=== PATIENT | male | born 1970 ===

== ENCOUNTER 2023-11-12 08:47 | Outpatient (CLI) | payer OTHER | END 2023-11-12 13:52 | disposition home or self-care (01) | LOC: TOM 08:47 | DX: I61.9 Nontraumatic intracerebral hemorrhage, unspecified (principal) | CPT/HCPCS: 70496 ==

== ENCOUNTER 2023-11-29 10:29 | Outpatient (CLI) | payer OTHER | END 2023-11-29 11:00 | disposition home or self-care (01) | LOC: MRI 10:29 | DX: I63.81 Other cerebral infarction due to occlusion or stenosis of small artery (principal); M99.80 Other biomechanical lesions of head region | CPT/HCPCS: 70553 ==

== ENCOUNTER 2024-05-06 09:17 | Outpatient (CLI) | payer OTHER | END 2024-05-06 15:37 | disposition home or self-care (01) | LOC: MRI 09:17 | DX: G40.119 Localization-related (focal) (partial) symptomatic epilepsy and epileptic syndromes with simple partial seizures, intractable, without status epilepticus (principal); I61.9 Nontraumatic intracerebral hemorrhage, unspecified | CPT/HCPCS: 70551 ==

== ENCOUNTER 2025-02-18 09:00 | Outpatient (CLI) | payer OTHER | END 2025-02-23 16:13 | disposition home or self-care (01) | LOC: MRI 09:00 | DX: G40.109 Localization-related (focal) (partial) symptomatic epilepsy and epileptic syndromes with simple partial seizures, not intractable, without status epilepticus (principal); I61.9 Nontraumatic intracerebral hemorrhage, unspecified | CPT/HCPCS: 70551 ==